=== PATIENT | female | born 1990 | race Two or more races ===

== ENCOUNTER 2017-12-02 09:12 | Emergency (ER) | payer MEDICAID ==
[2017-12-02 09:19] VITALS: BP 114/81
[2017-12-02] MEDS ORDERED: diphenhydrAMINE 25 MG CAP PO ONE (09:35)
[2017-12-02] MEDS ORDERED: FAMOTIDINE 20 MG TAB PO ONE (09:35)
[2017-12-02] MEDS ORDERED: predniSONE 20 MG TAB PO ONE (09:35)
--- NOTE | 2017-12-02 09:37 | EDPHY ---
H & P Stated Complaint: R arm swelling Time Seen by Provider: 12/02/17 09:30 HPI/ROS: CHIEF COMPLAINT: Itching lesion right arm HISTORY OF PRESENT ILLNESS: 27-year-old female self-described history of intense reaction from insect bites complaining of highly pruritic sudden-onset lesion to her right upper extremity. Nontender. Started yesterday afternoon. No systemic symptoms. Denies: Chest pain, dyspnea, wheezing, abdominal pain, nausea, vomiting, headache, new medications. PRIMARY CARE PROVIDER: Alyssa Lyn REVIEW OF SYSTEMS: 10 systems reviewed and negative with the exception of the elements mentioned in the history of present illness PAST MEDICAL & SURGICAL HISTORY: Prior history of hypersensitivity reaction to insect bites. No history of anaphylaxis. SOCIAL HISTORY:Nonsmoker PHYSICAL EXAM (Prior to examination, patient consented to physical exam, hands were washed and my usual and customary physical exam procedures followed) 1) GENERAL: Well-developed, well-nourished, alert and oriented. Appears to be in no acute distress. 2) HEAD: Normocephalic, atraumatic 3) HEENT: Pupils equal, round, reactive to light bilaterally. Sclera anicteric. Nasopharynx, oropharynx, clear, no lesions. Moist Mucous membranes. Ears bilaterally with normal tympanic membranes. 4) NECK: Full range of motion, no meningeal signs. 5) LUNGS: Clear auscultation bilaterally, no wheezes, no rhonchi, no retractions. 6) HEART: Regular rate and rhythm, no murmur, no heave, no gallop. 7) ABDOMEN: No guarding, no rebound, no focal tenderness, negative McBurney's, negative Jackson's, negative Rovsing's, negative peritoneal sign, 8) MUSCULOSKELETAL: Right upper extremity: The patient's biceps and triceps region she has raised salmon colored lesions consistent with urticaria Moving all extremities, no focal areas of tenderness, no obvious trauma. No peripheral edema or discoloration. 9) BACK: No CVA tenderness, no midline vertebral tenderness, no fluctuance, no step-off, no obvious trauma, no visual or palpable abnormality. 10) SKIN: Urticaric-like rash to the right upper extremity 11) Psychiatric: Patient is oriented X 3, there is no agitation. DIFFERENTIAL DIAGNOSIS: In no particular order including but limited to urticaria, hypersensitivity reaction, anaphylaxis - Personal History LMP (Females 10-55): Irregular - Medical/Surgical History Hx Asthma: No Hx Chronic Respiratory Disease: No Hx Diabetes: No Hx Cardiac Disease: No Hx Renal Disease: No Hx Cirrhosis: No Hx Alcoholism: No Hx HIV/AIDS: No Hx Splenectomy or Spleen Trauma: No Other PMH: denies - Social History Smoking Status: Never smoked Constitutional: Initial Vital Signs Temperature (C) 37.1 C 12/02/17 09:16 Heart Rate 75 12/02/17 09:16 Respiratory Rate 18 12/02/17 09:16 Blood Pressure 114/81 H 12/02/17 09:16 O2 Sat (%) 99 12/02/17 09:16 O2 Delivery Mode Room Air Allergies/Adverse Reactions: No Known Allergies Allergy (Unverified 12/02/17 09:16) Home Medications: Medication Instructions Recorded Famotidine [Pepcid] 20 mg PO BID #10 tablet 12/02/17 diphenhydrAMINE [Benadryl 25 MG 25 mg PO Q6 PRN #10 tab 12/02/17 (*)] predniSONE [Prednisone] 20 mg PO DAILY #9 tablet 12/02/17 Medical Decision Making ED Course/Re-evaluation: I think the patient's symptoms are more than likely consistent with urticaria and/or acute hypersensitivity reaction possible insect bite. She has no evidence of diffuse reaction such as dyspnea, vomiting, airway compromise. She has no new medications. The patient appears well overall. I Think she can be discharged. She has no evidence of super infection. Doubt anaphylaxis. Doubt angioedema. I recommended H1 H2 blockers, short course of steroids. My usual and customary allergic reaction precautions instructions provided. She feels comfortable being discharged. I saw this patient independently based on established practice protocols. Care of patient under supervision of secondary supervising physician Dr Vela . Departure - Departure Disposition: Home, Routine, Self-Care Clinical Impression: Urticaria Hypersensitivity reaction Qualifiers: Encounter type: initial encounter Qualified Code(s): T78.40XA - Allergy, unspecified, initial encounter Condition: Good Instructions: Urticaria (ED) Additional Instructions: Call 911 if you develop shortness of breath, difficulty swallowing, abdominal pain, vomiting or any other symptoms that concern you Referrals: Alyssa Lyn NP [Primary Care Provider] - 2-3 days, call for appt. Prescriptions: diphenhydrAMINE [Benadryl 25 MG (*)] 25 mg PO Q6 PRN #10 tab PRN Reason: Itching Famotidine [Pepcid] 20 mg PO BID #10 tablet predniSONE [Prednisone] 20 mg PO DAILY #9 tablet
== END 2017-12-02 09:54 | disposition home or self-care (01) ==
LOC: SUPCPDRO 09:12
DX: L50.9 Urticaria, unspecified (principal); M79.89 Other specified soft tissue disorders; Z91.038 Other insect allergy status
CPT/HCPCS: J7512